=== PATIENT | male | born 1945 | race Caucasian/White ===

== ENCOUNTER 2023-12-12 09:20 | Outpatient (RCR) | payer MEDICARE, OTHER, SELFPAY ==
[2023-12-12 09:23] VITALS: BMI 28.3
[2023-12-12 10:00] VITALS: BMI 28.3
== END 2024-03-09 09:33 | disposition home or self-care (01) ==
LOC: ANHDMC 09:20
PROVIDERS: PCP Family Medicine; Visit Provider Family Medicine
DX: E11.65 Type 2 diabetes mellitus with hyperglycemia (principal); Z71.3 Dietary counseling and surveillance
CPT/HCPCS: 97802

== ENCOUNTER 2024-08-27 08:15 | Outpatient (RCR) | payer MEDICARE, OTHER, SELFPAY | END 2024-09-09 14:16 | disposition home or self-care (01) | LOC: ANHDMC 08:15 | PROVIDERS: PCP Family Medicine; Visit Provider Internal Medicine | DX: E11.65 Type 2 diabetes mellitus with hyperglycemia (principal); Z71.89 Other specified counseling | CPT/HCPCS: G0108 ==

== ENCOUNTER 2024-11-17 08:13 | Outpatient (RCR) | payer MEDICARE, OTHER, SELFPAY | END 2025-02-15 10:02 | disposition home or self-care (01) | LOC: ANHDMC 08:13 | PROVIDERS: PCP Family Medicine; Visit Provider Internal Medicine | DX: E11.65 Type 2 diabetes mellitus with hyperglycemia (principal); Z71.89 Other specified counseling | CPT/HCPCS: G0108 ==